=== PATIENT | female | born 1995 | race Caucasian/White ===

== ENCOUNTER 2019-05-11 09:50 | Outpatient (CLI) | payer OTHER | END 2019-05-11 10:12 | disposition home or self-care (01) | LOC: SONOGRAMA 09:50 → MAMO-SONO 10:15 | DX: N93.8 Other specified abnormal uterine and vaginal bleeding (principal) ==

== ENCOUNTER 2020-08-06 08:28 | Outpatient (CLI) | payer OTHER | END 2020-08-06 08:40 | disposition home or self-care (01) | LOC: RX STUDY 08:28 | PROVIDERS: ATTEND Student in an Organized Health Care Education/Training Program | DX: N97.8 Female infertility of other origin (principal) ==